=== PATIENT | female | born 1975 | race Caucasian/White ===

== ENCOUNTER 2025-07-01 21:59 | Emergency (ER) | payer OTHER, BC, SELFPAY ==
--- OUTSIDE RECORDS SUMMARY | 2017-04-20 04:10 | XMS_ITS | Continuity of Care Document ---
Author Organization [facility] Address [address] [place] [address] Phone Care Team Providers Care Manager Bridge Name Role Phone Remy Epperson MD Unavailable Unavailable Allergies, Adverse Reactions, Alerts Substance Reaction Status Criticality No Known Allergies Active No Inform ation Medications Medication Instructions Dosage Effective Dates (start - stop) Status Comments Topamax 25 mg tablet 2 BID - Activ e prednisone 20 mg tablet take 1 tablet by oral route 3 times every day for 7 days. - Active Imitrex 100 mg tablet take 1 tablet by o ral route once with fluids as early as possible after the onset of a migraine attack;may repeat after 2 hours if headache returns, not to exceed 200mgin 24hrs 100 MG - Active spironolactone 50 mg tablet take 1 tablet by oral route 2 times every day 50 MG - Active Flonase 50 mcg/actuation nasal spray,suspension inhale 1 spray by intranasal route every day in each nostril - Active montelukast 10 mg tablet take 1 tablet by oral route every day in the evening 10 MG - Active loratadine 10 mg tablet take 1 tablet by oral route every day 10 MG - Active Procedures Procedure Date OFFICE/OUTPATIENT VISIT EST Advance Directives Directive Yes / No Effective Date File Name No Information Encounters Encounter Description Practice Location Reason(s) For Visit Diagnoses Date Provider OFFICE/OUTPAT IENT VISIT EST [facility], [address], [place], [address], [place] tel:[phone] [facility] Dizziness and giddinessMigraine, unspecified, not intractable, without status migrainosus 0 7 Zhou Alberto. [address] [place] [address], [address] [facility], [place], [place], [id number], [place]. tel:[phone] [facility], [address], [place], [address], [place] tel:[phone] [facility] OP No Information 7 Zhou Remy. [address] [place] [address], [address] [facility], [place], [place], [id number], [place]. tel:[phone] [facility], [facility] [address] [facility], [place], [address], [place] tel:[phone] [facility] No Information 7 Zhou Alberto. [address] [place] [address], [address] [facility], [place], [place], [id number], [place]. tel:[phone] [facility], [address], [place], [address], [place] tel:[phone] [facility] No Information 7 Zhou Alberto. [address] [place] [address], [address] [facility], [place], [place], [id number], [place]. tel:[phone] [facility], [facility] [address] [facility], [place], [address], [place] tel:[phone] [facility] Localization-related (focal) (partial) symptomatic epilepsy and epileptic syndromes with complex partial seizures, not intractable, without status epilepticus 7 Zhou Alberto. [address] [place] [address], [address] [facility], [place], [place], [id number], [place]. tel:[phone] [facility], [facility] [address], [place], [address], [place] tel:[phone] [facility] Dizziness and giddinessRetrograde amnesiaLocalization- related (focal) (partial) symptomatic epilepsy and epileptic syndromes with complex partial seizures, not intractable, without status epilepticusCardiac arrhythmia, unspecifiedBlackout 7 Zhou Alberto. [address] [facility], [address], [place], [place], [address], [place]. tel:[phone] Family History Family Member Type Diagnosis Age At Onset Problem (finding) Family history of Heart disease Mother Problem (finding) hypertension Maternal grandmother Problem (finding) dementia Problem (finding) Family history of High Cholesterol Maternal grandfather Problem (finding) malignant neopl asm of bone Payers Payer name Insurance type Covered libertarian ID Authoranabelgraciela pop(s) [facility] Marianne [id number] Social History Type Description Quantity Date Captured Comments Alcohol Use Details No Caffeine Use Details coffee and tea 3 cups per day 2016 Tobacco Use Status No Information Smoking Status Never smoker Non-Smoking Tobacco Use Details : No Details Available : No Details Available Sex Female Vital Signs Date / Time: Height Weight BMI Pulse Rate Blood Pressure Temperature Respiratory Rate Body Surface Area Head Circumference Head Circ. Percentile Wt./Francisco. Percentile BMI percentile Pulse Ox Inhaled Ox 9:52 AM 64.00 in 71.214 kg (157.00 lbs) 26.9 5 kg/m eter (2) 67 /min 104/70 mm[Hg] Chief Complaint And Reason For Visit No Information Plan Of Treatment Date Type Action Status Referral Ordered: MRI Brain W/O & W/Dye ordered Patient Education Headache: After Your Vi sit completed Patient Education Headache: After Your Vi sit completed History Of Present Illness Encounter Date Complaint History Of Prese nt Illness No Information Instructions Date Instruction Additional Infor mation No Information Assessments Type Assessment Date assessment Dizziness and giddiness 017 assessment Migraine, unspecifie d, not intractable, without status migrainosus
[2025-07-01 22:06] VITALS: BP 105/68; PULSE 93; RESP 20; TEMP 36.6; O2SAT 100; BMI 24.7
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
--- OUTSIDE RECORDS SUMMARY | 2025-07-01 22:14 | XMS_ITS | Encounter Summary ---
Author Organization [facility] Address [address] [place] [facility] [place] [address] Care Team Providers Care Returned Goods Repairer Name Role Phone Samson Cary MD Primary Care Provider Encounter Details Date Type Department Care Team (Late Contact Info) Description 09/12/2015 Orders Only [facility] Radiology [address] [place] [address] System, Provider Not In, [address] [place] [address] Social History Tobacco Use Types Packs/Day Years Used Date Smoking Tobacco: Never Assessed Comments Unknown Sex and Gender Information Value Date Recorded Sex Assigned at Not on file Legal Sex Female 7:38 PM CDT Gender Identity Not on file Sexual Orientation Not on file documented as of this encounter Plan of Treatment Upcoming Encounters Date Type Department Care Team (Late Contact Info) Description 08/14/2025 7:45 AM CDT Office Visit [facility] [place] - Primary Care [address] [place] [address] Eva Pascual APRN [address] [facility] [address] [place] [address] 06/06/2026 9:30 AM CDT Office Visit [facility] [address] [facility] [place] [address] Katie Baker, [facility] [address] [address] documented as of this encounter Procedures Procedure Name Priority Date/Time Associated Diagnosis Comments OUTSIDE IMAGES 09/12/2015 3:18 PM COPYMAN documented in this encounter Results * Outside Images (09/12/2015 3:18 PM COPYMAN) Anatomical Region Laterality Modality N/A Radiographic Lorena ging 09/12/2015 3:18 PM COPYMAN Narrative 09/12/2015 3:18 PM COPYMAN Historic images from [facility] exist and can be viewed by using the hyperlink to access Exam18s: L-SPINEROUTINE Procedure Note System, Provider Not In - 12/24/2019 Historic images from [facility] exist and can be viewed byusing the hyperlink to access Exam18s: L-SPINEROUTINE us Provider Not In System MD [facility] Final Result documented in this encounter Visit Diagnoses Not on filedocumented in this encounter Care Teams Returned Goods Repairer Relationship Specialty Start Date End Date Samson Cary MD [address] [place] [address] PCP - General Family Medicine 05/07/21 documented as of this encounter
--- OUTSIDE RECORDS SUMMARY | 2025-07-01 22:14 | XMS_ITS | Encounter Summary ---
Author Organization [facility] Address [address] [place] [address] Care Team Providers Care Camera Machinist Name Role Phone Samson Cary MD Primary Care Provider Encounter Details Date Type Department Care Team (Late st Contact Info) Description 11/18/2021 Orders Only [facility] [address] [facility] [place] [address] Rebecca Velasco MD [address] [place], [place] [address] Social History Tobacco Use Types Packs/Day Years Used Date Smoking Tobacco: Never Smokeless Tobacco: Never Alcohol Use Standard Drinks/Week Comments Yes 0 (1 standard drink = 0.6 oz pur e alcohol) occasional AUDIT-C Answer Date Recorded Frequency of Alcohol Consumption Never 05/07/2020 Average Number of Drinks Not on file 020 Frequency of Binge Drinking Not on file 070 05/2020 PHQ-2 Answer Date Recorded PHQ-2 Score 0 11/20/2021 Comments No Sex and Gender Information Value Date Recorded Sex Assigned at Not on file Legal Sex Female 7:38 PM CDT Gender Identity Not on file Sexual Orientation Not on file COVID-19 Exposure Response Date Recorded In the last month, have you been in contact with someone who was confirmed or suspected to have Coronavirus / COVID-19? Unable to assess 11/20/2021 8:32 AM SCROLL ASSEMBLER documented as of this encounter Plan of Treatment Upcoming Encounters Date Type Department Care Team (Late st Contact Info) Description 08/14/2025 7:45 AM CDT Office Visit [facility] [place] - Primary Care [address] [place] [address] Eva Pascual, MACHINE FITTER [address] [facility] [address] [place] [address] 06/06/2026 9:30 AM CDT Office [facility] [address] [facility] [place] [address] Katie Baker, [facility] [address] [address] documented as of this encounter Procedures Procedure Name Priority Date/Time Associated Diagnosis Comments MAMMOGRAPHY Routine 11/17/2021 documented in this encounter Results * MAMMOGRAPHY (11/17/2021) us Rebecca Velasco MD HEALTH MAINTENANCE Final Re sult documented in this encounter Visit Diagnoses Not on filedocumented in this encounter Additional Health Concerns Health Status Noted Date Alive and well 11/20/2021 Assessment Noted Time A fall risk assessment has been complete d for the patient 05/22/2021 11:03 AM CDT documented as of this encounter Care Teams Camera Machinist Relationship Specialty Start Date End Date Samson Cary MD [address] [place] [address] PCP - General Family Medicine 05/07/21 documented as of this encounter
--- OUTSIDE RECORDS SUMMARY | 2025-07-01 22:14 | XMS_ITS | Clinical Summary ---
Author Organization [facility] Address [address] [place] [address] Care Team Providers Care Clutch Mechanic Name Role Phone Samson Cary MD Primary Care Provider Allergies No known active allergies Medications multivitamin-ir on-folic acid-minerals (CENTRUM) 18 mg-400 mcg tablet Take 1 tablet by mouth in the morning. Active spironolactone (ALDACTONE) 50 MG tablet Take 50 mg by mouth in the morning. Takes for adult acne. 02/12/20 19 Active calcium carbonate-vitam in D3 600 mg-5 mcg (200 unit) per tablet Take by mouth. 09/17/20 17 Active ascorbic acid, vitamin C, (VITAMIN C) 100 MG tablet Take 100 mg by mouth in the morning. Active tretinoin (RETIN-A) 0.025 % cream 05/15/20 23 Active naproxen (Naprosyn) 500 mg tabletIndicatio ns:Strain of neck muscle, initial encounter Take 1 tablet (500 mg total) by mouth 2 (two) times a day with breakfast and supper. 60 tablet 12/04/19 25 026 Active fluticasone propionate (FLONASE) 50 mcg/actuation nasal sprayIndication s:Fluid level behind tympanic membrane of both ears Administer 1 spray into each nostril in the morning. 16 g 12/04/19 25 026 Active Loratadine-D 10-240 mg 24 hr tabletIndicatio ns:Allergic rhinitis, unspecified seasonality, unspecified trigger TAKE 1 TABLET BY MOUTH EVERY MORNING 90 tablet 06/19/20 25 Active Loratadine-D 10-240 mg 24 hr tabletIndicatio ns:Allergic rhinitis, unspecified seasonality, unspecified trigger Take 1 tablet by mouth in the morning. 90 tablet 08/14/20 24 025 Discontinued Active Problems Problem Noted Date Diagnosed Date Other acne 11/20/2021 Assessment & Plan (08/15/2023 10:23 PM CDT): Continue current treatment Family history of ovarian cancer 06/17/2021 Overview (06/17/2021): Paternal grandmother - age 42 Myriad My Risk 05/22/2021--NEGATIVE, No modified management guidelines identified. Assessment & Plan (08/15/2023 10:23 PM CDT): Continue follow up with [employer] Hyperlipidemia Assessment & Plan (08/15/2023 10:23 PM CDT): Nutritional counseling provided Assessment & Plan (05/20/2021 10:35 AM CDT): Lipid panel today. Resolved Problems Problem Noted Date Diagnosed Date Resolved Date Fibroid 01/02/2019 02/13/2019 Overview (01/02/2019): Added automatically from request for surgery [id number] Menometrorrhagia 01/02/2019 06/17/2020 Overview (02/13/2019): US on 12/05. Transvaginal US Multiple uterine fibroids are visualized. There is a fundal fibroid that measures 2.6 x 3.0 x 2.9 cm. The 2nd fibroid that measures 2.5 x 1.2 x 2.2 cm. There is a 3rd fibroid in lower uterine segment which measures 1.4 x 1.0 x 1.2 cm. The right ovary measures 2.0 x 3.0 x 1.95 cm. The left ovary measures 1.1 x 3.0 x 2.2 cm. - Neg pap 11/19 - Neg EMB 12/20 -Normal cbc and TSH 11/19 Abnormal uterine bleeding (AUB) 01/02/2019 02/13/2019 Overview (01/02/2019): Added automatically from request for surgery [id number] Fibroid 01/02/2019 06/17/2020 Overview (02/16/2019): Added automatically from request for surgery [id number] Abnormal uterine bleeding (AUB) 01/02/2019 06/17/2020 Overview (02/16/2019): Added automatically from request for surgery [id number] Excessive bleeding in premenopausal period 12/31/2018 02/13/2019 Encounters Date Type Department Care Team Description 06/19/2025 Refill [facility] - Primary Care [address] [place] [address] Samson Cary MD Allergic rhinitis, unspecified seasonality, unspecified trigger 06/01/2025 8:00 AM CDT Office Visit [facility] [address] [place] [address] Katie Baker, [facility]- [facility] Well woman exam (Primary Dx) 06/01/2025 Travel from Last 3 Months Immunizations Immunization Administration Dates Next Due DTaP (INFANRIX) 05/19/1978,07/26/1976,1974 ,1974 MMR (M-M-R II) 09/07/2014,08/27/1976 polio, unspecified 05/19/1978,07/26/1976, 974,1974 Family History Medical History Relation Name Comments Heart attack Father Hyperlipidemia Father Interstitial cystitis Father Melanoma Maternal Grandfather Diabetes Maternal Grandmother Diabetes Mother Hypertension Mother Bone cancer Paternal Grandfather Congenital heart disease Paternal Grandmother Diabetes Paternal Grandmother Hypertension Paternal Grandmother Ovarian cancer Paternal Grandmother unsur e age of diagnosis Relation Name Status Comments Father Alive Maternal Grandfather Maternal Grandmother Mother Alive Paternal Grandfather Paternal Grandmother Social History Tobacco Use Types Packs/Day Years Used Date Smoking Tobacco: Never Smokeless Tobacco: Never Tobacco Cessation:Counseling Given: Not Answered Alcohol Use Standard Drinks/Week Comments Yes 0 (1 standard drink = 0.6 oz pur e alcohol) occasional [facility] Utilities Answer Date Recorded In the past 12 months has th e electric, gas, oil, or water company threatened to shut off services in your home? No 12/04/2024 AUDIT-C Answer Date Recorded Frequency of Alcohol Consumption Never 05/07/2020 Average Number of Drinks Not on file 020 Frequency of Binge Drinking Not on file 05/2020 PHQ-2 Answer Date Recorded PHQ-2 Score 0 12/04/2024 Hunger Vital Sign Answer Date Recorded Within the past 12 months, y ou worried that your food would run out before you got the money to buy more. Never true 12/04/19 25 Within the past 12 months, t he food you bought just didn't last and you didn't have money to get more. Never true 12/04/2024 PRAPARE - Transportation Answer Date Re corded In the past 12 months, has l ack of transportation kept you from medical appointments or from getting medications? No 12/04/2024 Lack of Transportation (Non-Medical) Not on file 12/04/2024 Housing Stability Vital Sign Answer Fei e Recorded In the last 12 months, was t here a time when you were not able to pay the mortgage or rent on time? No 12/04/2024 Number of Times Moved in the Last Year Not on fi le 12/04/2024 Homeless in the Last Year Not on file 2024 Comments No Sex and Gender Information Value Date Recorded Sex Assigned at Not on file Legal Sex Female 7:38 PM CDT Gender Identity Not on file Sexual Orientation Not on file Last Filed Vital Signs Vital Sign Reading Time Taken Comments Blood Pressure 114/68 06/01/2025 8:01 AM CDT Pulse 81 12/04/2024 10:54 AM COMPUTER APPLICATIONS DEVELOPER Temperature 36.8 C (98.3 F) 12/04/2024 10:54 AM COMPUTER APPLICATIONS DEVELOPER Respiratory Rate 16 02/21/2019 2:00 PM CDT Oxygen Saturation 96% 12/04/2024 10:54 AM COMPUTER APPLICATIONS DEVELOPER Inhaled Oxygen Concentration - - Weight 66 kg (145 lb 9.6 oz) 06/01/2025 8:01 AM CDT Height 162.6 cm (5' 4 ) 06/01/2025 8:01 AM CDT Body Mass Index 24.99 06/01/2025 8:01 AM CDT Plan of Treatment Upcoming Encounters Date Type Department Care Team (Late st Contact Info) Description 08/14/2025 7:45 AM CDT Office Visit [facility] - Primary Care [address] [place] [address] Eva Pascual, DRAGLINE OILER [address] [place] [address] 06/06/2026 9:30 AM CDT [facility] Visit [facility] [address] [facility] [place] [address] Katie Baker, [facility] [address] [place] [address] Health Maintenance Due Date Last Done Comments Pneumococcal Vaccine: 50+ Years (1 of 1 - PCV) 2024 Shingrix (ZOSTER RECOMBINANT) (1 of 2) 2024 Influenza Vaccination (#1) 2025 Mammogram 03/29/2026 03/29/2025, 04/0 03/2024, 01/12/2023, Additional history exists Annual Wellness 06/01/2026 06/01/2025, 08/01, 05/30/2024, Additional history exists Td, Tdap Vaccines Adult 06/16/2028 06/16/2018 Colonoscopy 12/23/2031 12/23/2021 Bone Density Scan (DXA Scan) 2039 11/21/2024 IPV Vaccines Completed 05/19/1978, 07/03, 1974, Additional history exists Pap Smear Discontinued 05/15/2020 HIB Vaccines Aged Out No longer eligi ble based on patient's age to complete this topic HPV Vaccines Aged Out No longer eligi ble based on patient's age to complete this topic Hepatitis A Vaccines Aged Out No long er eligible based on patient's age to complete this topic Hepatitis B Vaccines Discontinued Meningococcal Vaccines Aged Out No lo nger eligible based on patient's age to complete this topic RSV Mab Nirsevimab (Beyfortus) <20 months Aged Out No longer eligibl e based on patient's age to complete this topic Rotavirus Vaccines Aged Out No longer eligible based on patient's age to complete this topic Procedures Procedure Name Priority Date/Time Associated Diagnosis Comments MG SCREENING BILATERAL Routine 03/29/2025 3:48 PM CDT Encounter for screening mammogram for breast cancer BONE DENSITY AXIAL Routine 11/21/2024 4: 36 PM COMPUTER APPLICATIONS DEVELOPER Wellness examination from Last 3 Months or Most Recently Relevant to Health Maintenance Results * SCREENING/ROUTINE MAMMOGRAM - utilized to detect unsuspected breast cancer at an early stage in asymptomatic women. (Routine exam, annual exam or in conjunction with an annual physical) (03/29/2025 3:48 PM CDT) Anatomical Region Laterality Modality Breast Bilateral Mammography 03/29/2025 3:39 PM CDT Narrative 03/30/2025 6:10 AM CDT #[id number] - MG SCREENING BILATERAL BILATERAL DIGITAL SCREENING MAMMOGRAM 3D/2D WITH SYNTHETIC 2D WITH CAD: 03/29/2025 CLINICAL: Screening mammogram routine. Comparison is made to exam dated: 02/04/2024 mammogram - [facility]. There are scattered areas of fibroglandular density. This exam was evaluated with digital breast tomosynthesis. Current study was also evaluated with a Computer Aided Detection (CAD) system. No significant masses, calcifications, or other findings are seen in either breast. There has been no significant interval change. IMPRESSION: NEGATIVE There is no mammographic evidence of malignancy. A 1 year screening mammogram is recommended. Based on the NCI/NSABP BCRA tool, this patient's calculated 5-year risk for developing breast cancer is 1.3% and lifetime risk is 11.6%. The patient was notified of the results. Rasheed munoz/jam:03/30/2025 06:10:04 Home Care Consultant(s): RT Jorge A(ARRT)(R)(M), [facility] letter sent: Mammography Normal Mammogram BI-RADS: Category 1: Negative Procedure Note Rasheed Olivarez MD - 03/30/2025 #[id number] - MG SCREENING BILATERAL BILATERAL DIGITAL SCREENING MAMMOGRAM 3D/2D WITH SYNTHETIC 2D WITH CAD:03/29/2025 CLINICAL: Screening mammogram routine. Comparison is made to exam dated: 02/04/2024 mammogram - [facility]. There are scattered areas of fibroglandular density. This exam was evaluated with digital breast tomosynthesis. Current studywas also evaluated with a Computer Aided Detection (CAD) system. No significant masses, calcifications, or other findings are seen ineither breast. There has been no significant interval change. IMPRESSION: NEGATIVE There is no mammographic evidence of malignancy. A 1 year screeningmammogram is recommended. Based on the NCI/NSABP BCRA tool, this patient's calculated 5-year riskfor developing breast cancer is 1.3% and lifetime risk is 11.6%. The patient was notified of the results. Rasheed munoz/jam:03/30/2025 06:10:04 Home Care Consultant(s): RT Jorge A(ARRT)(R)(M), [facility] letter sent: Mammography Normal Mammogram BI-RADS: Category 1: Negative Samson Cary MD [facility] ORDERABLES Nicki donald Result * Bone density axial (11/21/2024 4:36 PM COMPUTER APPLICATIONS DEVELOPER) Anatomical Region Laterality Modality Breast N/A Other Narrative 11/26/2024 3:57 PM COMPUTER APPLICATIONS DEVELOPER EXAM: DEXA SCAN HISTORY: Bone density screening, postmenopausal female TECHNIQUE: GE COMPARISON: None FINDINGS: DEXA scan is performed on the lumbar spine. Quality of the study is good. BMD 1.229 grams per square centimeter. T-score 0.3. Z-score a 0.8. DEXA scan is performed on the left femoral neck. Quality of the study is good. BMD 0.96 a grams per square centimeter. T-score -0.5. Z-score 0.3. DEXA scan is performed on the left hip. Quality of the study is good. BMD 1.114 grams per square centimeter. T-score 0.8. Z-score 1.4. IMPRESSION: Location of lowest bone mineral density: Left femoral neck T-score: -0.5 T-score values considered normal by WHO classification. Recommendation: Follow up DEXA scan in 1-2 years. FRAX WHO FRACTURE RISK ASSESSMENT TOOL: THE 10-YEAR PROBABILITY OF FRACTURE PERCENTILE IS 7.7% FOR MAJOR OSTEOPOROTIC FRACTURE AND 0.1% FOR HIP FRACTURE. Procedure Note Rasheed Olivarez MD - 11/26/2024 EXAM: DEXA SCAN HISTORY: Bone density screening, postmenopausal female TECHNIQUE: GE COMPARISON: None FINDINGS: DEXA scan is performed on the lumbar spine. Quality of the study is good.BMD 1.229 grams per square centimeter. T-score 0.3. Z-score a 0.8. DEXA scan is performed on the left femoral neck. Quality of the study isgood. BMD 0.96 a grams per square centimeter. T-score -0.5. Z-score0.3. DEXA scan is performed on the left hip. Quality of the study is good.BMD 1.114 grams per square centimeter. T-score 0.8. Z-score 1.4. IMPRESSION: Location of lowest bone mineral density: Left femoral neck T-score: -0.5 T-score values considered normal by WHO classification. Recommendation: Follow up DEXA scan in 1-2 years. FRAX WHO FRACTURE RISK ASSESSMENT TOOL: THE 10-YEAR PROBABILITY OFFRACTURE PERCENTILE IS 7.7% FOR MAJOR OSTEOPOROTIC FRACTURE AND 0.1% FORHIP FRACTURE. Samson Cary MD [facility] MG ORDERABLES Nicki donald Result from Last 3 Months or Most Recently Relevant to Health Maintenance Insurance [employer] PPO OR POS [facility] Care Teams Clutch Mechanic Relationship Specialty Start Date End Date Samson Cary MD [address] [place] [address] PCP - General Family Medicine 05/07/21
--- OUTSIDE RECORDS SUMMARY | 2025-07-01 22:14 | XMS_ITS | Encounter Summary ---
Author Organization [facility] Address [address] [facility] [place] [address] Care Team Providers Care Seo Engineer Name Role Phone Samson Cary MD Primary Care Provider Encounter Details Date Type Department Care Team (Late Contact Info) Description 04/29/2017 Orders Only [facility] Radiology [address] [place] [address] System, Provider Not In, [address] [place] [address] Social History Tobacco Use Types Packs/Day Years [...] Description 08/14/2025 7:45 AM CDT Office Visit [facility] [place] - Primary Care [address] [place] [address] Eva Pascual APRN [address] [place] [address] 06/06/2026 9:30 AM CDT Office Visit [facility] [address] [facility] [place] [address] Katie Baker, [facility]- CN [address] [place] [address] documented as of this encounter Procedures Procedure Name Priority Date/Time Associated Diagnosis Comments OUTSIDE IMAGES 04/29/2017 9:40 AM CDT documented in this encounter Results * Outside Images (04/29/2017 9:40 AM CDT) Anatomical Region Laterality Modality N/A Radiographic Lorena ging 04/29/2017 9:40 AM CDT Narrative 04/29/2017 9:40 AM CDT Historic images from [facility] [employer] [facility] exist and can be viewed by using the hyperlink to access [employer] pacs: SINUS Procedure Note System, Provider Not In, MD - 12/24/2019 Historic images from [facility] exist and can be viewed byusing the hyperlink to access [employer] pacs: SINUS us Provider Not In System MD [facility] OR DERABLES Final Result documented in this encounter Visit Diagnoses Not on filedocumented in this encounter Care Teams Seo Engineer Relationship Specialty Start Date End Date Samson Cary MD [address] [place] [address] PCP - General Family Medicine 05/07/21 documented as of this encounter
--- OUTSIDE RECORDS SUMMARY | 2025-07-01 22:14 | XMS_ITS | Encounter Summary ---
Author Organization [facility] Address [address] [place] [address] Care Team Providers Care Pointing Machine Operator Name Role Phone Samson Cary MD Primary Care Provider Encounter Details Date Type Department Care Team (Late Contact Info) Description 01/07/2023 Orders Only [facility] [address] [facility] [place] [address] Rebecca Velasco MD [address] [place], [place] [address] Social History Tobacco Use Types Packs/Day Years [...] Visit [facility] - Primary Care [address] [place] [address] Eva Pascual, CROCHET MACHINE OPERATOR [address] [facility] [address] [place] [address] 06/06/2026 9:30 AM CDT Office Visit [facility] [address] [facility] [place] [address] Katie Baker, CONFIGURATION RELEASE MANAGER- CN [address] [address] documented as of this encounter Procedures Procedure Name Priority Date/Time Associated Diagnosis Comments MAMMOGRAPHY Routine 01/06/2023 documented in this encounter Results * MAMMOGRAPHY (01/06/2023) Rebecca Velasco MD HEALTH MAINTENANCE Final Re sult documented in this encounter Visit Diagnoses Not on filedocumented in this encounter Additional Health Concerns Health Status Noted Date Alive and well 08/21/2022 Assessment Noted Time A fall risk assessment has been complete d for the patient 08/21/2022 7:58 AM CDT documented as of this encounter Care Teams Pointing Machine Operator Relationship Specialty Start Date End Date Samson Cary MD [address] [address] PCP - General Family Medicine 05/07/21 documented as of this encounter
--- OUTSIDE RECORDS SUMMARY | 2025-07-01 22:14 | XMS_ITS | Encounter Summary ---
Author Organization [facility] Address [address] [place] [address] Care Team Providers Care Bronze Chaser Name Role Phone Samson Cary MD Primary Care Provider Encounter Details Date Type Department Care Team (Late Contact Info) Description 01/13/2023 Orders Only [facility] [address] [facility] [place] [address] Rebecca Velasco MD [address] [place], [place] [address] Social History Tobacco Use Types Packs/Day Years [...] Description 08/14/2025 7:45 AM CDT Office Visit [facility] - Primary Care [address] [place] [address] Eva Pascual, ROOM CLEANER [address] [facility] [address] [place] [address] 06/06/2026 9:30 AM CDT Office Visit [facility] [address] [facility] [place] [address] Katie Baker, DIRECTOR SPECIALTY- CN [address] [place] [address] documented as of this encounter Procedures Procedure Name Priority Date/Time Associated Diagnosis Comments MAMMOGRAPHY Routine 01/12/2023 documented in this encounter Results * HM MAMMOGRAPHY (01/12/2023) Rebecca Velasco MD HEALTH MAINTENANCE Final Re sult documented in this encounter Visit Diagnoses Not on filedocumented in this encounter Additional Health Concerns Health Status Noted Date Alive and well 08/21/2022 Assessment Noted Time A fall risk assessment has been complete d for the patient 08/21/2022 7:58 AM CDT documented as of this encounter Care Teams Bronze Chaser Relationship Specialty Start Date End Date Samson Cary MD [address] [place] [address] PCP - General Family Medicine 05/07/21 documented as of this encounter
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
[2025-07-01] MEDS: ondansetron 2 mg/ML SDV 2 mL 4 MG IVP (22:17)
[2025-07-01] MEDS: metoclopramide 5 mg/mL SDV 2 mL 10 MG IVP (23:01)
[2025-07-01] MEDS: HYDROmorphone 0.5 MG/0.5 ML INJ IVP (23:03)
[2025-07-01 23:08] VITALS: BP 105/68; PULSE 81; O2SAT 100
[2025-07-01] MEDS: HYDROcodone-acetaminophen 7.5-325 mg Tablet 2 TAB PO (23:59)
[2025-07-02] VITALS: BP 113/64; PULSE 80; O2SAT 100
[2025-07-02] MEDS: HYDROmorphone 0.5 MG/0.5 ML INJ IVP (00:03)
[2025-07-02] MEDS: ondansetron 2 mg/ML SDV 2 mL 4 MG IVP (00:03)
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
== END 2025-07-02 00:23 | disposition home or self-care (01) ==
PROVIDERS: Emergency Provider Physician Assistant
DX: S01.01XA Laceration without foreign body of scalp, initial encounter (principal); S42.013A Anterior displaced fracture of sternal end of unspecified clavicle, initial encounter for closed fracture; S16.1XXA Strain of muscle, fascia and tendon at neck level, initial encounter; V89.2XXA Person injured in unspecified motor-vehicle accident, traffic, initial encounter
CPT/HCPCS: 70450; 71250; 72125; 96374; 96375; 96376; 99285; J1171; J1885; J2405; J2765; J9999; Q0162